=== PATIENT | female | born 1985 | race Caucasian/White ===

== ENCOUNTER 2019-01-26 07:22 | Emergency (ER) | payer BC ==
[2019-01-26 08:00] LABS: URINE PH (Dip) POC 5.5 (5.0-8.5)
[2019-01-26 08:00] LABS: URINE BLOOD (Dip) POC 1+ (NEGATIVE); URINE GLUCOSE (Dip) POC Negative (NEGATIVE); URINE KETONES (Dip) POC Negative (NEGATIVE); URINE LEUKOCYTE EST (Dip) POC Negative (NEGATIVE); URINE NITRITE (Dip) POC Negative (NEGATIVE); URINE TOTAL PROTEIN POC Negative (NEGATIVE)
[2019-01-26] MEDS: KETOROLAC 60 MG INJ IM (08:00)
== END 2019-01-26 08:20 | disposition home or self-care (01) ==
LOC: FTE 07:22
DX: M54.5 Low back pain (principal)
CPT/HCPCS: 81003; 81025; 96372; 99284-25